=== PATIENT | female | born 1995 | race Caucasian/White ===

== ENCOUNTER 2016-07-11 16:50 | Emergency (ER) | payer OTHER ==
[~2016-07-11 16:50] MED LIST: IBUP-1114 OR; Lortab OR; TYLE325T5 PO
[2016-07-11] MEDS ORDERED: AUGMENTIN 875 MG TAB As Ordered ONE (18:30)
[2016-07-11] MEDS ORDERED: ACETAMINOPHEN 325 MG TAB As Ordered ONE (18:31)
--- NOTE | 2016-07-11 18:42 | EDDOCDS ---
Nurse's Notes [facility] Name: Zoe Mckeon Age: 20 yrs Sex: Female : 1995 Arrival Date: 07/11/2016 Time: 16:50 Bed TR8 Private MD: Randolph Aleman W Diagnosis: Acute frontal sinusitis;Acute pharyngitis Presentation: 07/11 16:54 Presenting complaint: Patient states: Patient reports not feeling well, head and chest jmb hurt. Patient reports symptoms present x 2 days. Adult Sepsis Screening: The patient does not have new or worsening altered mentation. Patient's respiratory rate is less than 22. Systolic blood pressure is greater than 100. Patient has a qSOFA score of. Adult Sepsis Screening: Patient has a qSOFA score of 0- Negative Sepsis Screen. Suicide/Homicide risk assessment- the patient denies having any suicidal and/or homicidal ideations and does not present with any other emotional, behavioral or mental health complaints. Status: Patient is not a business services sales representative or dependent. Transition of care: patient was not received from another setting of care. 16:54 Acuity: NADJA Level 4 [facility] 16:54 Method Of Arrival: Walkin/Carried/Asstd [facility] Triage Assessment: 16:56 General: Appears in no apparent distress. Pain: Denies pain. Pt Declines HIV testing. [facility] Neurological: Level of Consciousness is awake, alert, obeys commands, Oriented to person, place, time, Speech is normal, Facial symmetry appears normal, Facial symmetry: tongue is midline. Respiratory: Onset: The symptoms/episode began/occurred gradually, Airway is patent Respiratory effort is even, Respiratory pattern is regular. Derm: Skin is pink, warm & dry. Musculoskeletal: Range of motion intact in all extremities. 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 none - PMHx: none; - PSHx: Appendectomy; - Social history: Smoking status: Patient states was never smoker of tobacco. No barriers to communication noted, The patient speaks fluent Slovak, Speaks appropriately for age. - Family history: Not pertinent. - : The pt / caregiver states he / she is not on anticoagulants. Home medication list is obtained from. - Exposure Risk Screening:: None identified. Screenin:39 Screening information is obtained from the patient. Fall risk: No risks identified. ms18 Assistance ADL's: requires no assistance with activities of daily living. Abuse/DV Screen: The patient / caregiver reports he/she is: not in a situation that causes fear, pain or injury. Nutritional screening: No deficits noted. Advance Directives: There is no living will. home support is adequate. Assessment: 18:19 General: Appears in no apparent distress, comfortable, ill, Behavior is appropriate for ms18 age, cooperative, quiet. Neurological: Level of Consciousness is awake, alert, obeys commands. Respiratory: Airway is patent Respiratory effort is even, unlabored. Derm: Skin is pink, warm & dry. 18:35 General: meds given per orders. NAD noted.. ttb 18:39 General: Appears in no apparent distress, comfortable, Behavior is appropriate for age, ms18 cooperative. Pain: Denies pain. Neurological: No deficits noted. Cardiovascular: Capillary refill < 3 seconds Chest pain is denied. Respiratory: Breath sounds are clear bilaterally. GI: Abdomen is non- distended. Derm: Skin is pink, warm & dry. Vital Signs: 16:52 BP 139 / 91; Pulse 112; Resp 18 S; Temp 100.0(O); Pulse Ox 98% on R/A; Weight 93.44 kg dd6 (M); Height 5 ft. 11 in. (180.34 cm) (R); 18:39 BP 137 / 89; Pulse 98; Resp 18; Pulse Ox 98% ; ms18 16:52 Body Mass Index 28.73 (93.44 kg, 180.34 cm) dd6 Vitals: 16:52 Log In Time: July 11, 2016 at 16:50. dd6 18:33 Strep Screen is obtained and tested: Negative, a GATSNEG culture is ordered in [facility] ms18 and sent. ED Course: 16:52 Patient visited by Mikie Del Cid PCA. dd6 16:52 Randolph Aleman is Private Physician. dd6 16:52 Patient moved to Waiting dd6 16:53 Patient moved to Pre RCE dd6 16:55 Triage Initiated jmb 18:16 Patient moved to Triage 2 ms18 18:19 Patient visited by Harriet Middleton RN. ms18 18:20 Nadeem Lucio PA is PHCP. mo1 18:20 Jyoti Berg MD is Attending Physician. mo1 18:22 Patient visited by Nadeem Lucio PA. mo1 18:34 Randolph Aleman is Referral Physician. mo1 18:35 Patient visited by Jeanna Koch RN. ttb 18:36 GATS (NEGATIVE STREP SCREEN) Sent. ms18 18:37 Patient moved to TR8 mlb1 18:39 Patient visited by Harriet Middleton RN. ms18 18:39 The patient / caregiver is instructed regarding the plan of care and ED course. Patient ms18 has correct armband on for positive identification. Property sent home with patient. :Personal belongings accompany Pt. 18:39 No IV's were initiated during this patient's visit. No procedures done that require ms18 assistance. Administered Medications: 18:30 Not Given (Other Intervention Used): Ibuprofen 800 mg PO once mo1 18:34 Drug: Acetaminophen 975 mg [acetaminophen 325 mg tablet (3 tabs)] Route: PO; ttb 18:35 Drug: Amoxicillin-Clavulanate 1 tabs [amoxicillin 875 mg-potassium clavulanate 125 mg ttb tablet (1 tabs)] Route: PO; Point of Care Testing: Urine : 18:36 hCG Reading: Negative; Control Reading: Positive; ms18 Ranges: Order Results: There are currently no results for this order. Outcome: 18:35 Discharge ordered by Provider. mo1 18:39 Discharge Assessment: Patient awake, alert and oriented x 3. No cognitive and/or ms18 functional deficits noted. Patient verbalized understanding of disposition instructions. patient administered narcotics - no. The following High Risk Discharge criteria are identified: None. Discharged to home ambulatory. Condition: good Condition: stable. Discharge instructions given to patient, Instructed on discharge instructions, follow up and referral plans. medication usage, Demonstrated understanding of instructions, medications, Pt was receptive of discharge instructions/ teaching. Prescriptions given X 2. No special radiology studies were completed. 18:41 Patient left the ED. ms18 Signatures: Nadeem Cotter RN RN mlb1 Mikie Del Cid, RADIO SPORTSCASTER RADIO SPORTSCASTER dd6 Jeanna Koch RN RN ttb Nadeem Lucio PA PA mo1 Jarek Montenegro RN RN jmb Middleton,Harriet,RN RN ms18 MARLOND
--- NOTE | 2016-07-11 18:42 | EDDOCDS ---
Physician Documentation [facility] Name: Zoe Mckeon Age: 20 yrs Sex: Female : 1995 Arrival Date: 07/11/2016 Time: 16:50 Bed TR8 Private MD: Randolph Aleman W Disposition: 07/11/16 18:35 Discharged to Home/Self Care. Impression: Acute frontal sinusitis, Acute pharyngitis. - Condition is Stable. - Discharge Instructions: Pharyngitis, Sinusitis, Adult. - Prescriptions for Augmentin 875- 125 mg Oral Tablet - take 1 tablet by ORAL route every 12 hours for 10 days; 20 tablet. ZOFRAN ODT 4 mg - dissolve 1 tablet by ORAL route 4 times per day As needed do not chew, do not swallow whole; 10 tablet. - Medication Reconciliation, Local Pharmacy Hours form. - Follow up: Randolph Aleman; When: Call to arrange an appointment; Reason: Recheck today's complaints, Continuance of care. - Problem is new. - Symptoms are unchanged. Historical: - Allergies: No known drug Allergies; - Home Meds: 1. none - PMHx: none; - PSHx: Appendectomy; - Social history: Smoking status: Patient states was never smoker of tobacco. No barriers to communication noted, The patient speaks fluent Ukrainian, Speaks appropriately for age. - Family history: Not pertinent. - : The pt / caregiver states he / she is not on anticoagulants. Home medication list is obtained from. - Exposure Risk Screening:: None identified. 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 11 in. (180.34 cm) (R); 18:39 BP 137 / 89; Pulse 98; Resp 18; Pulse Ox 98% ; ms18 16:52 Body Mass Index 28.73 (93.44 kg, 180.34 cm) dd6 MDM: 18:25 Strep Screen, Nursing ordered. mo1 18:25 Ibuprofen 800 mg PO once ordered. mo1 18:25 Amoxicillin-Clavulanate 875 mg 1 tabs PO once ordered. mo1 18:30 Acetaminophen Tablet 975 mg PO once ordered. mo1 18:30 UCG by Nursing ordered. mo1 18:34 GATS (NEGATIVE STREP SCREEN) Ordered. [facility] Point of Care Testing: Urine : 18:36 hCG Reading: Negative; Control Reading: Positive; ms18 Ranges: Administered Medications: 18:30 Not Given (Other Intervention Used): Ibuprofen 800 mg PO once mo1 18:34 Drug: Acetaminophen 975 mg [acetaminophen 325 mg tablet (3 tabs)] Route: PO; ttb 18:35 Drug: Amoxicillin-Clavulanate 1 tabs [amoxicillin 875 mg-potassium clavulanate 125 mg ttb tablet (1 tabs)] Route: PO; Signatures: Dispatcher [employer] EDMS Nadeem Lucio PA PA mo1 Jarek Montenegro RN RN Harriet Alvares RN RN ms18 Jeanna Koch RN ttb MTDD
--- NOTE | 2016-07-13 19:42 | EDDOCDS ---
Physician Documentation [facility] Name: Zoe Mckeon Age: 20 yrs Sex: Female : 1995 Arrival Date: 07/11/2016 Time: 16:50 Bed TR8 Private MD: Randolph Aleman W Disposition: 07/11/16 18:35 Discharged to Home/Self Care. Impression: Acute frontal sinusitis, Acute pharyngitis. - Condition is Stable. - Discharge Instructions: Pharyngitis, Sinusitis, Adult. - Prescriptions for Augmentin 875- 125 mg Oral Tablet - take 1 tablet by ORAL route every 12 hours for 10 days; 20 tablet. ZOFRAN ODT 4 mg - dissolve 1 tablet by ORAL route 4 times per day As needed do not chew, do not swallow whole; 10 tablet. - Medication Reconciliation, Local Pharmacy Hours form. - Follow up: Randolph Aleman; When: Call to arrange an appointment; Reason: Recheck today's complaints, Continuance of care. - Problem is new. - Symptoms are unchanged. Historical: - Allergies: No known drug Allergies; - Home Meds: 1. none - PMHx: none; - PSHx: Appendectomy; - Social history: Smoking status: Patient states was never smoker of tobacco. No barriers to communication noted, The patient speaks fluent Lao, Speaks appropriately for age. - Family history: Not pertinent. - : The pt / caregiver states he / she is not on anticoagulants. Home medication list is obtained from. - Exposure Risk Screening:: None identified. 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 11 in. (180.34 cm) (R); 18:39 BP 137 / 89; Pulse 98; Resp 18; Pulse Ox 98% ; ms18 16:52 Body Mass Index 28.73 (93.44 kg, 180.34 cm) dd6 MDM: 18:25 Strep Screen, Nursing ordered. mo1 18:25 Ibuprofen 800 mg PO once ordered. mo1 18:25 Amoxicillin-Clavulanate 875 mg 1 tabs PO once ordered. mo1 18:30 Acetaminophen Tablet 975 mg PO once ordered. mo1 18:30 UCG by Nursing ordered. mo1 18:34 GATS (NEGATIVE STREP SCREEN) Ordered. [facility] 18:47 Financial registration complete. [facility] 18:47 [facility] Payment Agreement was scanned into [employer] and attached to record. ks :54 T-Sheet-- Draft Copy was scanned into [employer] and attached to record. klr Point of Care Testing: Urine : 18:36 hCG Reading: Negative; Control Reading: Positive; ms18 Ranges: Administered Medications: 18:30 Not Given (Other Intervention Used): Ibuprofen 800 mg PO once mo1 18:34 Drug: Acetaminophen 975 mg [acetaminophen 325 mg tablet (3 tabs)] Route: PO; ttb 18:35 Drug: Amoxicillin-Clavulanate 1 tabs [amoxicillin 875 mg-potassium clavulanate 125 mg ttb tablet (1 tabs)] Route: PO; Signatures: Dispatcher [employer] EDNM Nadeem Lucio PA PA mo1 Jarek MontenegroRN RN karolinab Harriet Middleton RN RN ms18 Yuli Beatty, Reg Reg ks16 Marla Moulton Teresa RN ttb The chart was reviewed and I authenticate all verbal orders and agree with the evaluation and treatment provided.Attachments: 18:47 [facility] Payment Agreement [facility] :54 T-Sheet-- Draft Copy klr Chart Complete MTDD
--- NOTE | 2016-07-13 19:42 | EDDOCDS ---
Nurse's Notes [facility] Name: Zoe Mckeon Age: 20 yrs Sex: Female : 1995 Arrival Date: 07/11/2016 Time: 16:50 Bed TR8 Private MD: Randolph Aleman W Diagnosis: Acute frontal sinusitis;Acute pharyngitis Presentation: 07/11 16:54 Presenting complaint: Patient states: Patient reports not feeling well, head and chest jmb hurt. Patient reports symptoms present x 2 days. Adult Sepsis Screening: The patient does not have new or worsening altered mentation. Patient's respiratory rate is less than 22. Systolic blood pressure is greater than 100. Patient has a qSOFA score of. Adult Sepsis Screening: Patient has a qSOFA score of 0- Negative Sepsis Screen. Suicide/Homicide risk assessment- the patient denies having any suicidal and/or homicidal ideations and does not present with any other emotional, behavioral or mental health complaints. Status: Patient is not a roof service technician or dependent. Transition of care: patient was not received from another setting of care. 16:54 Acuity: NADJA Level 4 [facility] 16:54 Method Of Arrival: Walkin/Carried/Asstd [facility] Triage Assessment: 16:56 General: Appears in no apparent distress. Pain: Denies pain. Pt Declines HIV testing. [facility] Neurological: Level of Consciousness is awake, alert, obeys commands, Oriented to person, place, time, Speech is normal, Facial symmetry appears normal, Facial symmetry: tongue is midline. Respiratory: Onset: The symptoms/episode began/occurred gradually, Airway is patent Respiratory effort is even, Respiratory pattern is regular. Derm: Skin is pink, warm & dry. Musculoskeletal: Range of motion intact in all extremities. 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 none - PMHx: none; - PSHx: Appendectomy; - Social history: Smoking status: Patient states was never smoker of tobacco. No barriers to communication noted, The patient speaks fluent Polish, Speaks appropriately for age. - Family history: Not pertinent. - : The pt / caregiver states he / she is not on anticoagulants. Home medication list is obtained from. - Exposure Risk Screening:: None identified. Screenin:39 Screening information is obtained from the patient. Fall risk: No risks identified. ms18 Assistance ADL's: requires no assistance with activities of daily living. Abuse/DV Screen: The patient / caregiver reports he/she is: not in a situation that causes fear, pain or injury. Nutritional screening: No deficits noted. Advance Directives: There is no living will. home support is adequate. Assessment: 18:19 General: Appears in no apparent distress, comfortable, ill, Behavior is appropriate for ms18 age, cooperative, quiet. Neurological: Level of Consciousness is awake, alert, obeys commands. Respiratory: Airway is patent Respiratory effort is even, unlabored. Derm: Skin is pink, warm & dry. 18:35 General: meds given per orders. NAD noted.. ttb 18:39 General: Appears in no apparent distress, comfortable, Behavior is appropriate for age, ms18 cooperative. Pain: Denies pain. Neurological: No deficits noted. Cardiovascular: Capillary refill < 3 seconds Chest pain is denied. Respiratory: Breath sounds are clear bilaterally. GI: Abdomen is non- distended. Derm: Skin is pink, warm & dry. Vital Signs: 16:52 BP 139 / 91; Pulse 112; Resp 18 S; Temp 100.0(O); Pulse Ox 98% on R/A; Weight 93.44 kg dd6 (M); Height 5 ft. 11 in. (180.34 cm) (R); 18:39 BP 137 / 89; Pulse 98; Resp 18; Pulse Ox 98% ; ms18 16:52 Body Mass Index 28.73 (93.44 kg, 180.34 cm) dd6 Vitals: 16:52 Log In Time: July 11, 2016 at 16:50. dd6 18:33 Strep Screen is obtained and tested: Negative, a GATSNEG culture is ordered in [facility] ms18 and sent. ED Course: 16:52 Patient visited by Mikie Del Cid PCA. dd6 16:52 Randolph Aleman is Private Physician. dd6 16:52 Patient moved to Waiting dd6 16:53 Patient moved to Pre RCE dd6 16:55 Triage Initiated jmb 18:16 Patient moved to Triage 2 ms18 18:19 Patient visited by Harriet Middleton RN. ms18 18:20 Nadeem Lucio PA is PHCP. mo1 18:20 Jyoti Berg MD is Attending Physician. mo1 18:22 Patient visited by Nadeem Lucio PA. mo1 18:34 Randolph Aleman is Referral Physician. mo1 18:35 Patient visited by Jeanna Koch RN. ttb 18:36 GATS (NEGATIVE STREP SCREEN) Sent. ms18 18:37 Patient moved to TR8 mlb1 18:39 Patient visited by Harriet Middleton RN. ms18 18:39 The patient / caregiver is instructed regarding the plan of care and ED course. Patient ms18 has correct armband on for positive identification. Property sent home with patient. :Personal belongings accompany Pt. 18:39 No IV's were initiated during this patient's visit. No procedures done that require ms18 assistance. 18:47 [facility] Payment Agreement was scanned into [email or web address] and attached to record. ks16 20:54 T-Sheet-- Draft Copy was scanned into [email or web address] and attached to record. klr Administered Medications: 18:30 Not Given (Other Intervention Used): Ibuprofen 800 mg PO once mo1 18:34 Drug: Acetaminophen 975 mg [acetaminophen 325 mg tablet (3 tabs)] Route: PO; ttb 18:35 Drug: Amoxicillin-Clavulanate 1 tabs [amoxicillin 875 mg-potassium clavulanate 125 mg ttb tablet (1 tabs)] Route: PO; Point of Care Testing: Urine : 18:36 hCG Reading: Negative; Control Reading: Positive; ms18 Ranges: Order Results: Lab Order: GATS (NEGATIVE STREP SCREEN); SPEC'M 07/11/16 18:29 Test: GATS CULTURE (NEG STREP SCR); Value: GATS RESULT NEGATIVE FOR STREP PYOGENES (GROUP A); Status: F Test: GATS CULTURE (NEG STREP SCR); Value: ORGANISM 1: STREP AGALACTIAE GROUP B; Status: F Test: GATS CULTURE (NEG STREP SCR); Value: STREP AGALACTIAE GROUP B; Status: F Test: GATS CULTURE (NEG STREP SCR); Value: QUANTITY OF GROWTH MODERATE; Status: F Outcome: 18:35 Discharge ordered by Provider. mo1 18:39 Discharge Assessment: Patient awake, alert and oriented x 3. No cognitive and/or ms18 functional deficits noted. Patient verbalized understanding of disposition instructions. patient administered narcotics - no. The following High Risk Discharge criteria are identified: None. Discharged to home ambulatory. Condition: good Condition: stable. Discharge instructions given to patient, Instructed on discharge instructions, follow up and referral plans. medication usage, Demonstrated understanding of instructions, medications, Pt was receptive of discharge instructions/ teaching. Prescriptions given X 2. No special radiology studies were completed. 18:41 Patient left the ED. ms18 Signatures: Nadeem Cotter, RN RN mlb1 Mikie Del Cid, CRISIS INTERVENTION SPECIALIST CRISIS INTERVENTION SPECIALIST dd6 Jeanna Koch, RN RN Nadeem Melendrez PA PA mo1 Jarek Montenegro,RN RN Harriet AlvaresRN RN ms18 Yuli Beatty, Reg Reg ks16 Marla Moulton Chart Complete MTDD
--- NOTE | 2016-07-13 19:42 | EDDOCDS ---
Physician Documentation [facility] Name: Zoe Mckeon Age: 20 yrs Sex: Female : 1995 Arrival Date: 07/11/2016 Time: 16:50 Bed TR8 Private MD: Randolph Aleman W Disposition: 07/11/16 18:35 Discharged to Home/Self Care. Impression: Acute frontal sinusitis, Acute pharyngitis. - Condition is Stable. - Discharge Instructions: Pharyngitis, Sinusitis, Adult. - Prescriptions for Augmentin 875- 125 mg Oral Tablet - take 1 tablet by ORAL route every 12 hours for 10 days; 20 tablet. ZOFRAN ODT 4 mg - dissolve 1 tablet by ORAL route 4 times per day As needed do not chew, do not swallow whole; 10 tablet. - Medication Reconciliation, Local Pharmacy Hours form. - Follow up: Randolph Aleman; When: Call to arrange an appointment; Reason: Recheck today's complaints, Continuance of care. - Problem is new. - Symptoms are unchanged. Historical: - Allergies: No known drug Allergies; - Home Meds: 1. none - PMHx: none; - PSHx: Appendectomy; - Social history: Smoking status: Patient states was never smoker of tobacco. No barriers to communication noted, The patient speaks fluent Spanish, Speaks appropriately for age. - Family history: Not pertinent. - : The pt / caregiver states he / she is not on anticoagulants. Home medication list is obtained from. - Exposure Risk Screening:: None identified. 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 11 in. (180.34 cm) (R); 18:39 BP 137 / 89; Pulse 98; Resp 18; Pulse Ox 98% ; ms18 16:52 Body Mass Index 28.73 (93.44 kg, 180.34 cm) dd6 MDM: 18:25 Strep Screen, Nursing ordered. mo1 18:25 Ibuprofen 800 mg PO once ordered. mo1 18:25 Amoxicillin-Clavulanate 875 mg 1 tabs PO once ordered. mo1 18:30 Acetaminophen Tablet 975 mg PO once ordered. mo1 18:30 UCG by Nursing ordered. mo1 18:34 GATS (NEGATIVE STREP SCREEN) Ordered. [facility] 18:47 Financial registration complete. [facility] 18:47 [facility] Payment Agreement was scanned into [employer] and attached to record. ks :54 T-Sheet-- Draft Copy was scanned into [employer] and attached to record. klr Point of Care Testing: Urine : 18:36 hCG Reading: Negative; Control Reading: Positive; ms18 Ranges: Administered Medications: 18:30 Not Given (Other Intervention Used): Ibuprofen 800 mg PO once mo1 18:34 Drug: Acetaminophen 975 mg [acetaminophen 325 mg tablet (3 tabs)] Route: PO; ttb 18:35 Drug: Amoxicillin-Clavulanate 1 tabs [amoxicillin 875 mg-potassium clavulanate 125 mg ttb tablet (1 tabs)] Route: PO; Signatures: Dispatcher [employer] EDMA Nadeem Lucio PA PA mo1 Jarek MontenegroRN RN karolinab Harriet Middleton RN RN ms18 Yuli Beatty, Reg Reg ks16 Marla Moulton Teresa RN ttb The chart was reviewed and I authenticate all verbal orders and agree with the evaluation and treatment provided.Attachments: 18:47 [facility] Payment Agreement [facility] :54 T-Sheet-- Draft Copy klr Chart Complete MTDD
== END 2016-07-11 18:41 | disposition home or self-care (01) ==
LOC: M ED 16:50
DX: J01.90 Acute sinusitis, unspecified (principal); J02.8 Acute pharyngitis due to other specified organisms; Z90.89 Acquired absence of other organs

== ENCOUNTER 2019-05-13 10:51 | Emergency (ER) | payer OTHER, SELFPAY ==
[~2019-05-13] VITALS: Ht 167.6 cm; Wt 92.2 kg
[2019-05-13 12:39] VITALS: BP 138/90
== END 2019-05-13 12:46 | disposition home or self-care (01) ==
LOC: M ED 10:51
DX: F43.0 Acute stress reaction (principal); E11.9 Type 2 diabetes mellitus without complications

== ENCOUNTER → 2022-06-03 | Outpatient (REF) | payer OTHER ==
[~2022-06-03] MED LIST changes: +BACT800T5 PO
[2022-06-03 17:53] LABS: ALBUMIN 4.1 G/DL (3.2-5.2); ALKALINE PHOSPHATASE 52 U/L (46-116); ALT/SGPT 37 U/L (7.0-40); AST/SGOT 25 U/L (<34); BILIRUBIN,TOTAL 0.8 MG/DL (0.3-1.2); BLOOD UREA NITROGEN 17 MG/DL (9-23); CALCIUM LEVEL 8.9 MG/DL (8.5-10.1); CARBON DIOXIDE LEVEL 24 MMOL/L (20-31); CHLORIDE LEVEL 103 MMOL/L (98-107); CHOLESTEROL LEVEL 161 MG/DL (<200); CHOLESTEROL RISK RATIO 5.27 (<5); CREATININE FOR GFR 0.63 MG/DL (0.55-1.30); GLOMERULAR FILTRATION RATE > 60.0 (>60); GLUCOSE, FASTING 114 MG/DL (60-100); HDL CHOLESTEROL 30.5 MG/DL (>40); LDL CHOLESTEROL 95.1 MG/DL (<100); NON-HDL-C 131 MG/DL; SODIUM LEVEL 135 MMOL/L (136-145); TOTAL PROTEIN 7.7 G/DL (5.7-8.2); TRIGLYCERIDES LEVEL 177 MG/DL (<150)
[2022-06-03 19:48] LABS: HEPATITIS C VIRUS ABY INDEX 0.2 INDEX (<0.8); HIV 1&2 SCREEN CENTAUR NEGATIVE (NEGATIVE)
[2022-06-03 23:33] LABS: HEMOGLOBIN A1c 5.7 % (4.0-6.0)
== END ==
LOC: M LAB REF 16:56
PROVIDERS: ATTEND Physician Assistant
DX: E11.65 Type 2 diabetes mellitus with hyperglycemia (principal); E78.1 Pure hyperglyceridemia; Z11.4 Encounter for screening for human immunodeficiency virus [HIV]; Z11.59 Encounter for screening for other viral diseases

== ENCOUNTER 2022-07-15 20:21 | Emergency (ER) | payer OTHER ==
[~2022-07-15] VITALS: Ht 177.8 cm; Wt 87.4 kg
[2022-07-15 21:10] LABS: HEMATOCRIT 38.3 % (36.0-47.0); HEMOGLOBIN 13.2 g/dl (12.0-15.5); MEAN CORPUSCULAR HEMOGLOBIN 30.8 pg (27.0-33.0); MEAN CORPUSCULAR HGB CONC 34.5 g/dl (32.0-36.5); MEAN CORPUSCULAR VOLUME 89.5 fl (80.0-96.0); PLATELET COUNT, AUTOMATED 241 10^3/uL (150-450); RED BLOOD COUNT 4.28 10^6/uL (4.00-5.40); WHITE BLOOD COUNT 13.5 10^3/uL (4.0-10.0)
[2022-07-15 21:41] LABS: BLOOD UREA NITROGEN 13 MG/DL (9-23); CALCIUM LEVEL 9.3 MG/DL (8.5-10.1); CARBON DIOXIDE LEVEL 26 MMOL/L (20-31); CHLORIDE LEVEL 105 MMOL/L (98-107); CREATININE FOR GFR 0.76 MG/DL (0.55-1.30); GLOMERULAR FILTRATION RATE > 60.0 (>60); GLUCOSE, FASTING 163 MG/DL (60-100); POTASSIUM SERUM 4.4 MMOL/L (3.5-5.1); SODIUM LEVEL 139 MMOL/L (136-145)
[2022-07-16 00:49] VITALS: BP 125/78
== END 2022-07-16 01:31 | disposition left against medical advice (07) ==
LOC: M ED 20:21
DX: Z53.21 Procedure and treatment not carried out due to patient leaving prior to being seen by health care provider (principal)

== ENCOUNTER → 2022-10-15 | Outpatient (CLI) | payer OTHER | LOC: M WUC 12:54 | PROVIDERS: ATTEND Physician Assistant | DX: M25.571 Pain in right ankle and joints of right foot (principal); S93.491A Sprain of other ligament of right ankle, initial encounter ==

== ENCOUNTER → 2023-01-06 | Outpatient (REF) | payer OTHER ==
[2023-01-06 18:08] LABS: HCG, SERUM QUANTITATIVE 6383.6 MIU/ML (<4.2)
[2023-01-06 18:19] LABS: HCG, SERUM QUALITATIVE POSITIVE (NEGATIVE)
== END ==
LOC: M LAB REF 16:25
PROVIDERS: ATTEND Physician Assistant
DX: Z33.1 Pregnant state, incidental (principal)

== ENCOUNTER 2023-01-25 14:47 | Emergency (ER) | payer OTHER ==
[~2023-01-25] VITALS: Ht 177.8 cm; Wt 88.1 kg
[2023-01-25 14:48] VITALS: BP 134/95; TEMP 97.1; O2SAT 98
[2023-01-25] MEDS ORDERED: SERT150C PO (15:46)
== END 2023-01-25 17:17 | disposition left against medical advice (07) ==
LOC: M ED 14:47
DX: O20.9 Hemorrhage in early pregnancy, unspecified (principal); Z3A.01 Less than 8 weeks gestation of pregnancy; Z53.21 Procedure and treatment not carried out due to patient leaving prior to being seen by health care provider

== ENCOUNTER → 2023-08-18 | Outpatient (REF) | payer OTHER ==
[~2023-08-18] MED LIST changes: +SERT150C PO
[2023-08-18 17:22] LABS: CREATININE, URINE 170.6 MG/DL; MAU/CREAT RATIO 78.5 MCG/MG (0.0-30.0)
== END ==
LOC: M LAB REF 16:15
PROVIDERS: ATTEND Physician Assistant
DX: E11.9 Type 2 diabetes mellitus without complications (principal)

== ENCOUNTER → 2023-10-12 | Outpatient (REF) | payer OTHER ==
[2023-10-12 18:37] LABS: HEMATOCRIT 40.8 % (36.0-47.0); HEMOGLOBIN 14.1 g/dl (12.0-15.5); MEAN CORPUSCULAR HEMOGLOBIN 30.7 pg (27.0-33.0); MEAN CORPUSCULAR HGB CONC 34.6 g/dl (32.0-36.5); MEAN CORPUSCULAR VOLUME 88.9 fl (80.0-96.0); PLATELET COUNT, AUTOMATED 253 10^3/uL (150-450); RED BLOOD COUNT 4.59 10^6/uL (4.00-5.40); WHITE BLOOD COUNT 8.5 10^3/uL (4.0-10.0)
[2023-10-12 19:16] LABS: ALBUMIN 3.2 G/DL (3.2-5.2); ALKALINE PHOSPHATASE 69 U/L (46-116); ALT/SGPT 24 U/L (7.0-40); AST/SGOT 18 U/L (<34); BILIRUBIN,TOTAL 0.3 MG/DL (0.3-1.2); BLOOD UREA NITROGEN 17 MG/DL (9-23); CALCIUM LEVEL 8.4 MG/DL (8.5-10.1); CARBON DIOXIDE LEVEL 23 MMOL/L (20-31); CHLORIDE LEVEL 108 MMOL/L (98-107); CHOLESTEROL LEVEL 165 MG/DL (<200); CHOLESTEROL RISK RATIO 6.84 (<5); CREATININE FOR GFR 0.57 MG/DL (0.55-1.30); GLOMERULAR FILTRATION RATE > 60.0 (>60); GLUCOSE, FASTING 152 MG/DL (60-100); HDL CHOLESTEROL 24.1 MG/DL (>40); MAGNESIUM LEVEL 1.6 MG/DL (1.8-2.4); NON-HDL-C 140.9 MG/DL; POTASSIUM SERUM 4.8 MMOL/L (3.5-5.1); SODIUM LEVEL 137 MMOL/L (136-145); TOTAL PROTEIN 6.9 G/DL (5.7-8.2); TRIGLYCERIDES LEVEL 911 MG/DL (<150); VITAMIN B12 LEVEL 373 PG/ML (211-911)
== END ==
LOC: M LAB REF 16:39
PROVIDERS: ATTEND Physician Assistant
DX: E11.9 Type 2 diabetes mellitus without complications (principal); G25.81 Restless legs syndrome

== ENCOUNTER → 2024-02-17 | Outpatient (REF) | payer OTHER ==
[2024-02-17 17:02] LABS: CREATININE, URINE 89.5 MG/DL
[2024-02-17 17:03] LABS: MAU/CREAT RATIO 27.9 MCG/MG (0.0-30.0)
[2024-02-17 17:14] LABS: ALBUMIN 3.4 G/DL (3.2-5.2); ALKALINE PHOSPHATASE 64 U/L (46-116); ALT/SGPT 25 U/L (7.0-40); AST/SGOT 14 U/L (<34); BILIRUBIN,TOTAL 0.8 MG/DL (0.3-1.2); BLOOD UREA NITROGEN 11 MG/DL (9-23); CALCIUM LEVEL 8.5 MG/DL (8.5-10.1); CARBON DIOXIDE LEVEL 24 MMOL/L (20-31); CHLORIDE LEVEL 107 MMOL/L (98-107); CHOLESTEROL LEVEL 149 MG/DL (<200); GLOMERULAR FILTRATION RATE > 60.0 (>60); GLUCOSE, FASTING 206 MG/DL (60-100); HDL CHOLESTEROL 21.9 MG/DL (>40); LDL CHOLESTEROL 71.9 MG/DL (<100); NON-HDL-C 127.1 MG/DL; POTASSIUM SERUM 4.4 MMOL/L (3.5-5.1); SODIUM LEVEL 137 MMOL/L (136-145); TRIGLYCERIDES LEVEL 276 MG/DL (<150)
[2024-02-17 17:24] LABS: HEMOGLOBIN A1c 5.7 % (4.0-6.0)
== END ==
LOC: M LAB REF 16:08
PROVIDERS: ATTEND Physician Assistant
DX: R80.9 Proteinuria, unspecified (principal); E11.9 Type 2 diabetes mellitus without complications; E78.1 Pure hyperglyceridemia